=== PATIENT | male | born 1965 | race Caucasian/White ===

== ENCOUNTER 2019-10-16 18:03 | Inpatient (IN) | payer MEDICAID, OTHER ==
[~2019-10-16] VITALS: Ht 177.8 cm; Wt 64.4 kg
[2019-10-16] MEDS ORDERED: PROPOFOL 100 ML IV ONE (18:07)
--- NOTE | 2019-10-16 18:10 | NUR ---
PT HAD PRESENTED TO [facility] FOR ONE WEEK. DOES NOT SEE MD AND DENIED MEDICAL H TO [facility] [place]. PT ARRIVED ON VENTILATOR
[2019-10-16] MEDS ORDERED: DOPAMINE/D5W PMX 250 ML IV PRN ×2 (18:51→19:00)
[2019-10-16] MEDS ORDERED: MIDAZOLAM 1 MG/ML, 2ML IVPush ONE (19:00)
[2019-10-16] MEDS ORDERED: SODIUM CHLORIDE FLUSH 10ML SYR IVF ONE (19:00)
[2019-10-16] MEDS ORDERED: PLEASE ENTER HEIGHT AND WEIGHT MC SCH (19:00)
[2019-10-16] MEDS ORDERED: SODIUM CHLORIDE 0.9% 1,000ML IVBOLUS ONE (19:00)
[2019-10-16] MEDS: MIDAZOLAM HCL 50 MG in SODIUM CHLORIDE 0.9% 40 ML IV PRN (19:05)
--- NOTE | 2019-10-16 19:37 | NUR ---
REPORT TO DILCIA YUAN
[2019-10-16] MEDS ORDERED: MIDAZOLAM 1 MG/ML, 5ML ONE (19:41)
[2019-10-16] MEDS ORDERED: PIPERACILLIN/TAZO/PMX 3.375GM 50 ML IVPB ONE (20:00)
[2019-10-16] MEDS ORDERED: PHARMACOKINETIC CONSULTATION MC ONE ×2 (20:00→21:30)
[2019-10-16] MEDS ORDERED: VANCOMYCIN PER PHARMACY MC ONE (20:00)
[2019-10-16] MEDS ORDERED: VANCOMYCIN 1,800 MG in SODIUM CHLORIDE 0.9% 250 ML IV ONE (20:00)
[2019-10-16] MEDS ORDERED: PIPERACILLIN/TAZO/PMX 3.375GM 50 ML ONE (20:11)
[2019-10-16 20:22] LABS: ALBUMIN 1.9 g/dL (3.4-5.0); ANION GAP 3 mmol/L (5-15); CALCIUM 7.2 mg/dL (8.5-10.1); CHLORIDE 106 mmol/L (98-107); CREATININE 3.65 mg/dL (0.7-1.3)
[2019-10-16] MEDS ORDERED: NOREPINEPHRINE 8 MG in SODIUM CHLORIDE 0.9% 242 ML IV PRN (20:40)
[2019-10-16 21:00] LABS: BASOPHILS # (AUTO) 0.01 x10^3/uL (0-0.1); BASOPHILS % (AUTO) 0 % (0-1); EOSINOPHILS # (AUTO) 0.01 x10^3/uL (0-0.4); EOSINOPHILS % (AUTO) 0 % (1-7); LYMPHOCYTES # (AUTO) 1.71 x10^3/uL (1-3.4); LYMPHOCYTES % (AUTO) 13 % (22-44); MD NO; MEAN CORPUSCULAR HEMOGLOBIN 26.1 pg (27.5-34.5); MEAN CORPUSCULAR HGB CONC 32.3 g/dL (33.2-36.2); MEAN CORPUSCULAR VOLUME 80.7 fL (81-97); MEAN PLATELET VOLUME 7.7 fL (7.4-10.4); MONOCYTES # (AUTO) 0.32 x10^3/uL (0.2-0.8); MONOCYTES % (AUTO) 3 % (2-9); NEUTROPHILS # (AUTO) 10.96 x10^3/uL (1.8-6.8); NEUTROPHILS % (AUTO) 84 % (42-75); PLATELET COUNT 200 x10^3/uL (130-400); RED BLOOD COUNT 2.93 x10^6/uL (4.38-5.82); RED CELL DISTRIBUTION WIDTH 19.5 % (9.4-14.8)
[2019-10-16] MEDS: SODIUM CHLORIDE 0.9% 1,000 ML IV SCH (21:00)
[2019-10-16] MEDS ORDERED: INSULIN REGULAR 100 UNITS/ML, 3ML VIAL IVPush ONE ×2 (21:00→22:30)
[2019-10-16] MEDS ORDERED: LACTULOSE 20 GM/30 ML UDC NG PRN (21:00)
[2019-10-16] MEDS ORDERED: VANCOMYCIN PER PHARMACY MC PRN (21:00)
[2019-10-16] MEDS ORDERED: SODIUM BICARB 8.4%, 50ML SYRINGE IVPush ONE ×2 (21:00→22:30)
[2019-10-16] MEDS ORDERED: CALCIUM CHLORIDE 10%, 10ML SYR IVPush ONE (21:00)
[2019-10-16] MEDS ORDERED: ALBUTEROL 0.5%, 20ML NPPB ONE (21:00)
[2019-10-16] MEDS ORDERED: BISACODYL 10 MG SUPP PR PRN (21:00)
[2019-10-16] MEDS ORDERED: LIDOCAINE-MPF 1%, 2ML ENDO PRN (21:00)
[2019-10-16] MEDS ORDERED: PIPERACILLIN/TAZO/PMX 3.375GM 50 ML IV SCH (21:00)
[2019-10-16] MEDS ORDERED: DEXTROSE 50%, 50ML SYRINGE IVPush ONE ×2 (21:00→22:30)
[2019-10-16] MEDS ORDERED: ONDANSETRON 2MG/ML, 2ML IV PRN (21:00)
[2019-10-16] MEDS ORDERED: SENNA/DOCUSATE TABLET NG PRN (21:00)
[2019-10-16] MEDS ORDERED: ENOXAPARIN 30 MG/0.3 ML SQ SCH (21:00)
[2019-10-16] MEDS ORDERED: PHARMACY MAY ADJ FOR RENAL FX MC SCH (21:00)
[2019-10-16] MEDS ORDERED: SENNA 176 MG/5 ML ORAL SOL NG PRN (21:00)
[2019-10-16] MEDS ORDERED: PHARMACOKINETIC MONITORING MC PRN (21:30)
[2019-10-16] MEDS ORDERED: FUROSEMIDE 20 MG/2 ML IV ONE (21:30)
[2019-10-16] MEDS: NOREPINEPHRINE 8 MG in SODIUM CHLORIDE 0.9% 242 ML IV PRN (21:30)
--- NOTE | 2019-10-16 21:30 | NUR ---
PT REPORT GIVEN TO [facility] ICU 11 RN, PT TRANSPORTED TO ICU BED 11 WITHOUT INCEDENT.
[2019-10-16] MEDS ORDERED: CALCIUM CHLORIDE IV ONE (22:30)
[2019-10-16] MEDS ORDERED: SODIUM CHLORIDE 0.9% IV ONE (22:30)
[2019-10-16] MEDS ORDERED: SODIUM POLYSTYRENE SULFONATE ORAL SUSP PO ONE (22:30)
[2019-10-16 23:43] VITALS: BP 153/47
[2019-10-16 23:46] LABS: MICROSCOPIC INDICATED
[2019-10-17] VITALS: BP 139/46
[2019-10-17] MEDS: MIDAZOLAM HCL 50 MG in SODIUM CHLORIDE 0.9% 40 ML IV PRN ×3 (00:09→14:10)
[2019-10-17] MEDS: PIPERACILLIN/TAZO/PMX 3.375GM 50 ML IV SCH ×4 (01:57→19:40)
[2019-10-17 02:00] VITALS: BP 120/41
[2019-10-17] MEDS: NOREPINEPHRINE 8 MG in SODIUM CHLORIDE 0.9% 242 ML IV PRN ×4 (02:04→17:22)
[2019-10-17 05:30] LABS: ALANINE AMINOTRANSFERASE 70 U/L (12-78); ALBUMIN 1.9 g/dL (3.4-5.0); ANION GAP 6 mmol/L (5-15); CHLORIDE 105 mmol/L (98-107)
[2019-10-17 05:32] LABS: ALKALINE PHOSPHATASE 106 U/L (45-117); BILIRUBIN,TOTAL 1.3 mg/dL (0.2-1.0); CREATININE 3.89 mg/dL (0.7-1.3); TOTAL PROTEIN 8.9 g/dL (6.4-8.2)
[2019-10-17 06:07] LABS: BASOPHILS # (AUTO) 0.02 x10^3/uL (0-0.1); BASOPHILS % (AUTO) 0 % (0-1); EOSINOPHILS # (AUTO) 0.05 x10^3/uL (0-0.4); EOSINOPHILS % (AUTO) 0 % (1-7); LYMPHOCYTES # (AUTO) 2.07 x10^3/uL (1-3.4); LYMPHOCYTES % (AUTO) 13 % (22-44); MD NO; MEAN CORPUSCULAR HEMOGLOBIN 26.4 pg (27.5-34.5); MEAN CORPUSCULAR HGB CONC 32.5 g/dL (33.2-36.2); MEAN CORPUSCULAR VOLUME 81.2 fL (81-97); MEAN PLATELET VOLUME 8.3 fL (7.4-10.4); MONOCYTES # (AUTO) 0.33 x10^3/uL (0.2-0.8); MONOCYTES % (AUTO) 2 % (2-9); NEUTROPHILS % (AUTO) 84 % (42-75); PLATELET COUNT 260 x10^3/uL (130-400); RED BLOOD COUNT 3.54 x10^6/uL (4.38-5.82)
[2019-10-17] MEDS: PANTOPRAZOLE 40 MG IV IV SCH (08:07)
[2019-10-17] MEDS ORDERED: HEPARIN 5,000 UNITS/ML, 1ML IV ONE (09:30)
[2019-10-17] MEDS ORDERED: PHARMACY MAY ADJ FOR RENAL FX MC PRN (10:00)
[2019-10-17] MEDS ORDERED: PROCHLORPERAZINE 5 MG/ML, 2ML IVPush PRN (10:00)
[2019-10-17] MEDS: ASCORBIC ACID 500 MG TABLET PO SCH ×2 (10:42→19:34)
[2019-10-17] MEDS: CHOLECALCIFEROL 5,000u TAB PO SCH (10:42)
[2019-10-17] MEDS: HEPARIN 25,000 UNITS/250ML PMX 250 ML IV PRN (10:47)
[2019-10-17] MEDS: ASPIRIN 325 MG TABLET PO SCH (10:55)
[2019-10-17] MEDS: AZITHROMYCIN 500 MG in SODIUM CHLORIDE 0.9% 250 ML IV SCH (10:55)
[2019-10-17] MEDS: ZINC SULFATE 220 MG CAPSULE PO SCH (10:55)
[2019-10-17] MEDS: SODIUM CHLORIDE 0.9% 1,000 ML IV SCH (10:56)
[2019-10-17] MEDS: FENTANYL PF 100 MCG/2ML IVPush PRN (11:03)
[2019-10-17 15:50] LABS: ALBUMIN 1.8 g/dL (3.4-5.0); ANION GAP 7 mmol/L (5-15); CALCIUM 7.5 mg/dL (8.5-10.1); CHLORIDE 108 mmol/L (98-107); CREATININE 4.09 mg/dL (0.7-1.3)
[2019-10-17] MEDS ORDERED: MIDAZOLAM HCL 100 MG in SODIUM CHLORIDE 0.9% 80 ML IV PRN (17:00)
[2019-10-17] MEDS ORDERED: DEXTROSE 50%, 50ML SYRINGE IVPush ONE (18:30)
[2019-10-17] MEDS ORDERED: INSULIN REGULAR 100 UNITS/ML, 3ML VIAL IVPush ONE (18:30)
[2019-10-17] MEDS ORDERED: CALCIUM CHLORIDE 10%, 10ML SYR IVPush ONE (18:30)
[2019-10-17] MEDS ORDERED: SODIUM ZIRCONIUM CYCLOSILICATE 10 GM PO ONE (18:30)
[2019-10-17] MEDS: SODIUM BICARBONATE 8.4% 75 MEQ in SODIUM CHLORIDE 0.45% 1,000 ML IV SCH (19:31)
[2019-10-17] MEDS: MIDAZOLAM HCL 100 MG in SODIUM CHLORIDE 0.9% 80 ML IV PRN (19:32)
[2019-10-17] MEDS: NOREPINEPHRINE 32 MG in SODIUM CHLORIDE 0.9% 218 ML IV PRN (19:32)
[2019-10-17] MEDS: ATORVASTATIN 80 MG TABLET PO SCH (19:33)
[2019-10-17] MEDS: HEPARIN 5,000 UNITS/ML, 1ML IV PRN (19:35)
[2019-10-18] MEDS: PIPERACILLIN/TAZO/PMX 3.375GM 50 ML IV SCH ×2 (00:42→08:08)
[2019-10-18] MEDS: HEPARIN 5,000 UNITS/ML, 1ML IV PRN ×2 (03:06→14:28)
[2019-10-18] MEDS: MIDAZOLAM HCL 100 MG in SODIUM CHLORIDE 0.9% 80 ML IV PRN ×2 (04:36→21:34)
[2019-10-18] MEDS: HEPARIN 25,000 UNITS/250ML PMX 250 ML IV PRN ×2 (05:41→21:22)
[2019-10-18 06:22] LABS: ALBUMIN 1.7 g/dL (3.4-5.0); ANION GAP 9 mmol/L (5-15); CHLORIDE 109 mmol/L (98-107)
[2019-10-18 06:24] LABS: BASOPHILS # (AUTO) 0.06 x10^3/uL (0-0.1); BASOPHILS % (AUTO) 0 % (0-1); EOSINOPHILS # (AUTO) 0.04 x10^3/uL (0-0.4); EOSINOPHILS % (AUTO) 0 % (1-7); LYMPHOCYTES # (AUTO) 3.31 x10^3/uL (1-3.4); LYMPHOCYTES % (AUTO) 21 % (22-44); MD NO; MEAN CORPUSCULAR HEMOGLOBIN 26.4 pg (27.5-34.5); MEAN CORPUSCULAR HGB CONC 32.1 g/dL (33.2-36.2); MEAN CORPUSCULAR VOLUME 82.2 fL (81-97); MEAN PLATELET VOLUME 7.7 fL (7.4-10.4); MONOCYTES # (AUTO) 0.63 x10^3/uL (0.2-0.8); MONOCYTES % (AUTO) 4 % (2-9); NEUTROPHILS % (AUTO) 75 % (42-75); PLATELET COUNT 266 x10^3/uL (130-400); RED BLOOD COUNT 4.02 x10^6/uL (4.38-5.82)
[2019-10-18 06:25] LABS: ALANINE AMINOTRANSFERASE 69 U/L (12-78); ALKALINE PHOSPHATASE 86 U/L (45-117); BILIRUBIN,TOTAL 1.2 mg/dL (0.2-1.0); CREATININE 4.66 mg/dL (0.7-1.3); TOTAL PROTEIN 8.5 g/dL (6.4-8.2)
[2019-10-18 06:30] LABS: C-REACTIVE PROTEIN, QUANT 8.1 mg/dL (0.02-0.49); VANCOMYCIN,RANDOM 16.2 mcg/mL
[2019-10-18] MEDS: SODIUM BICARBONATE 8.4% 75 MEQ in SODIUM CHLORIDE 0.45% 1,000 ML IV SCH (08:08)
[2019-10-18] MEDS ORDERED: PIPERACILLIN/TAZO/PMX 2.25GM 50 ML IV SCH ×2 (10:00→14:00)
[2019-10-18] MEDS: PANTOPRAZOLE 40 MG IV IV SCH (10:06)
[2019-10-18] MEDS: ASCORBIC ACID 500 MG TABLET PO SCH ×2 (10:06→21:30)
[2019-10-18] MEDS: CHOLECALCIFEROL 5,000u TAB PO SCH (10:06)
[2019-10-18] MEDS: ASPIRIN 325 MG TABLET PO SCH (10:06)
[2019-10-18] MEDS: ZINC SULFATE 220 MG CAPSULE PO SCH (10:06)
[2019-10-18] MEDS: AZITHROMYCIN 500 MG in SODIUM CHLORIDE 0.9% 250 ML IV SCH (10:07)
[2019-10-18] MEDS: NOREPINEPHRINE 32 MG in SODIUM CHLORIDE 0.9% 218 ML IV PRN ×2 (10:11→23:18)
[2019-10-18] MEDS ORDERED: SODIUM ZIRCONIUM CYCLOSILICATE 5 GM PO ONE (11:00)
[2019-10-18] MEDS ORDERED: METHYLNALTREXONE 12 MG/0.6 ML SYR SQ ONE (12:28)
[2019-10-18] MEDS: PIPERACILLIN/TAZO/PMX 2.25GM 50 ML IV SCH ×2 (13:05→21:30)
[2019-10-18] MEDS ORDERED: SODIUM BICARBONATE 8.4% 75 MEQ in SODIUM CHLORIDE 0.45% 1,000 ML IV SCH (18:30)
[2019-10-18] MEDS: ATORVASTATIN 80 MG TABLET PO SCH (21:30)
[2019-10-19] MEDS: HEPARIN 5,000 UNITS/ML, 1ML IV PRN ×3 (01:00→16:44)
[2019-10-19] MEDS: PIPERACILLIN/TAZO/PMX 2.25GM 50 ML IV SCH ×4 (02:29→19:23)
[2019-10-19 04:38] LABS: BASOPHILS # (AUTO) 0.05 x10^3/uL (0-0.1); BASOPHILS % (AUTO) 0 % (0-1); EOSINOPHILS # (AUTO) 0.14 x10^3/uL (0-0.4); EOSINOPHILS % (AUTO) 1 % (1-7); HCT (SEDRATE) 27.3 % (39.2-51.8); LYMPHOCYTES # (AUTO) 3.14 x10^3/uL (1-3.4); LYMPHOCYTES % (AUTO) 26 % (22-44); MD NO; MEAN CORPUSCULAR HEMOGLOBIN 26.5 pg (27.5-34.5); MEAN CORPUSCULAR HGB CONC 32.2 g/dL (33.2-36.2); MEAN CORPUSCULAR VOLUME 82.1 fL (81-97); MEAN PLATELET VOLUME 7.1 fL (7.4-10.4); MONOCYTES # (AUTO) 0.69 x10^3/uL (0.2-0.8); MONOCYTES % (AUTO) 6 % (2-9); NEUTROPHILS # (AUTO) 8.19 x10^3/uL (1.8-6.8); NEUTROPHILS % (AUTO) 67 % (42-75); PLATELET COUNT 282 x10^3/uL (130-400); RED BLOOD COUNT 3.33 x10^6/uL (4.38-5.82); RED CELL DISTRIBUTION WIDTH 19.9 % (9.4-14.8)
[2019-10-19 04:42] LABS: ALBUMIN 1.5 g/dL (3.4-5.0); ANION GAP 8 mmol/L (5-15); CALCIUM 7.6 mg/dL (8.5-10.1); CHLORIDE 109 mmol/L (98-107)
[2019-10-19 04:45] LABS: ALANINE AMINOTRANSFERASE 45 U/L (12-78); CREATININE 4.98 mg/dL (0.7-1.3); TOTAL PROTEIN 7.7 g/dL (6.4-8.2); TRIGLYCERIDES 142 mg/dL (50-200)
[2019-10-19 04:50] LABS: ALKALINE PHOSPHATASE 65 U/L (45-117)
[2019-10-19] MEDS: ASPIRIN 325 MG TABLET PO SCH (05:32)
[2019-10-19] MEDS: CHOLECALCIFEROL 5,000u TAB PO SCH (07:54)
[2019-10-19] MEDS: ASCORBIC ACID 500 MG TABLET PO SCH ×2 (07:54→21:54)
[2019-10-19] MEDS: ZINC SULFATE 220 MG CAPSULE PO SCH (07:54)
[2019-10-19] MEDS: PANTOPRAZOLE 40 MG IV IV SCH (07:54)
[2019-10-19] MEDS: AZITHROMYCIN 500 MG in SODIUM CHLORIDE 0.9% 250 ML IV SCH (10:11)
[2019-10-19] MEDS ORDERED: FUROSEMIDE 40 MG/4 ML IV ONE ×2 (11:00→17:00)
[2019-10-19] MEDS: HEPARIN 25,000 UNITS/250ML PMX 250 ML IV PRN (15:23)
[2019-10-19] MEDS: MIDAZOLAM HCL 100 MG in SODIUM CHLORIDE 0.9% 80 ML IV PRN (15:25)
[2019-10-19] MEDS: NOREPINEPHRINE 32 MG in SODIUM CHLORIDE 0.9% 218 ML IV PRN (21:54)
[2019-10-19] MEDS: ATORVASTATIN 80 MG TABLET PO SCH (21:54)
[2019-10-20] MEDS: PIPERACILLIN/TAZO/PMX 2.25GM 50 ML IV SCH ×4 (02:31→20:33)
[2019-10-20] MEDS: HEPARIN 25,000 UNITS/250ML PMX 250 ML IV PRN (04:53)
[2019-10-20] MEDS: ASPIRIN 325 MG TABLET PO SCH (05:04)
[2019-10-20 05:27] LABS: BASOPHILS # (AUTO) 0.03 x10^3/uL (0-0.1); BASOPHILS % (AUTO) 0 % (0-1); EOSINOPHILS # (AUTO) 0.09 x10^3/uL (0-0.4); EOSINOPHILS % (AUTO) 1 % (1-7); LYMPHOCYTES # (AUTO) 2.65 x10^3/uL (1-3.4); LYMPHOCYTES % (AUTO) 25 % (22-44); MD NO; MEAN CORPUSCULAR HEMOGLOBIN 26.9 pg (27.5-34.5); MEAN CORPUSCULAR HGB CONC 32.5 g/dL (33.2-36.2); MEAN CORPUSCULAR VOLUME 82.7 fL (81-97); MEAN PLATELET VOLUME 6.8 fL (7.4-10.4); MONOCYTES # (AUTO) 0.53 x10^3/uL (0.2-0.8); MONOCYTES % (AUTO) 5 % (2-9); NEUTROPHILS # (AUTO) 7.33 x10^3/uL (1.8-6.8); NEUTROPHILS % (AUTO) 69 % (42-75); PLATELET COUNT 240 x10^3/uL (130-400); RED BLOOD COUNT 3.06 x10^6/uL (4.38-5.82); RED CELL DISTRIBUTION WIDTH 21.4 % (9.4-14.8)
[2019-10-20 05:32] LABS: HCT (SEDRATE) 25.3 % (39.2-51.8)
[2019-10-20 05:40] LABS: ANION GAP 7 mmol/L (5-15); CALCIUM 7.6 mg/dL (8.5-10.1); CHLORIDE 109 mmol/L (98-107); CREATININE 5.49 mg/dL (0.7-1.3)
[2019-10-20] MEDS: HEPARIN 5,000 UNITS/ML, 1ML IV PRN (06:23)
[2019-10-20] MEDS: PANTOPRAZOLE 40 MG IV IV SCH (07:57)
[2019-10-20] MEDS: ASCORBIC ACID 500 MG TABLET PO SCH ×2 (07:57→20:34)
[2019-10-20] MEDS: CHOLECALCIFEROL 5,000u TAB PO SCH (07:57)
[2019-10-20] MEDS: ZINC SULFATE 220 MG CAPSULE PO SCH (07:57)
[2019-10-20] MEDS: HEPARIN 5,000 UNITS/ML, 1ML SQ SCH ×2 (11:14→20:34)
[2019-10-20] MEDS: AZITHROMYCIN 500 MG in SODIUM CHLORIDE 0.9% 250 ML IV SCH (11:14)
[2019-10-20] MEDS: ATORVASTATIN 80 MG TABLET PO SCH (20:34)
[2019-10-21] MEDS: PIPERACILLIN/TAZO/PMX 2.25GM 50 ML IV SCH ×4 (01:27→21:04)
[2019-10-21] MEDS: HEPARIN 5,000 UNITS/ML, 1ML SQ SCH ×3 (03:35→21:04)
[2019-10-21 04:01] LABS: BASOPHILS # (AUTO) 0.04 x10^3/uL (0-0.1); BASOPHILS % (AUTO) 1 % (0-1); EOSINOPHILS # (AUTO) 0.11 x10^3/uL (0-0.4); EOSINOPHILS % (AUTO) 1 % (1-7); LYMPHOCYTES # (AUTO) 2.07 x10^3/uL (1-3.4); LYMPHOCYTES % (AUTO) 25 % (22-44); MD NO; MEAN CORPUSCULAR HEMOGLOBIN 26.8 pg (27.5-34.5); MEAN CORPUSCULAR HGB CONC 32.2 g/dL (33.2-36.2); MEAN CORPUSCULAR VOLUME 83.3 fL (81-97); MEAN PLATELET VOLUME 6.9 fL (7.4-10.4); MONOCYTES # (AUTO) 0.36 x10^3/uL (0.2-0.8); MONOCYTES % (AUTO) 4 % (2-9); NEUTROPHILS # (AUTO) 5.57 x10^3/uL (1.8-6.8); NEUTROPHILS % (AUTO) 68 % (42-75); PLATELET COUNT 181 x10^3/uL (130-400); RED BLOOD COUNT 2.91 x10^6/uL (4.38-5.82); RED CELL DISTRIBUTION WIDTH 21.2 % (9.4-14.8)
[2019-10-21 04:06] LABS: ANION GAP 7 mmol/L (5-15); CALCIUM 7.6 mg/dL (8.5-10.1); CHLORIDE 109 mmol/L (98-107); CREATININE 5.65 mg/dL (0.7-1.3)
[2019-10-21 04:07] LABS: HCT (SEDRATE) 24.3 % (39.2-51.8)
[2019-10-21] MEDS: PROPOFOL 100 ML IV PRN (06:08)
[2019-10-21 06:33] LABS: FIO2 40 %
[2019-10-21] MEDS: CHOLECALCIFEROL 5,000u TAB PO SCH (08:20)
[2019-10-21] MEDS: PANTOPRAZOLE 40 MG IV IV SCH (08:20)
[2019-10-21] MEDS: ZINC SULFATE 220 MG CAPSULE PO SCH (08:20)
[2019-10-21] MEDS: AZITHROMYCIN 500 MG in SODIUM CHLORIDE 0.9% 250 ML IV SCH (11:00)
[2019-10-21] MEDS: ASCORBIC ACID 500 MG TABLET PO SCH ×2 (11:00→21:04)
[2019-10-21] MEDS: ASPIRIN 325 MG TABLET PO SCH (11:01)
[2019-10-21] MEDS ORDERED: FUROSEMIDE 40 MG/4 ML IV ONE (11:30)
[2019-10-21] MEDS ORDERED: FUROSEMIDE 20 MG/2 ML ONE (12:19)
[2019-10-21] MEDS: ATORVASTATIN 80 MG TABLET PO SCH (21:05)
[2019-10-21] MEDS: NOREPINEPHRINE 32 MG in SODIUM CHLORIDE 0.9% 218 ML IV PRN (22:55)
[2019-10-22] MEDS: PIPERACILLIN/TAZO/PMX 2.25GM 50 ML IV SCH ×4 (01:40→20:20)
[2019-10-22] MEDS: PROPOFOL 100 ML IV PRN ×3 (01:41→23:45)
[2019-10-22 04:06] LABS: MEAN CORPUSCULAR HEMOGLOBIN 26.6 pg (27.5-34.5); MEAN CORPUSCULAR HGB CONC 31.2 g/dL (33.2-36.2); MEAN PLATELET VOLUME 7.1 fL (7.4-10.4); PLATELET COUNT 127 x10^3/uL (130-400); RED BLOOD COUNT 2.71 x10^6/uL (4.38-5.82)
[2019-10-22 04:17] LABS: ANION GAP 7 mmol/L (5-15); CALCIUM 7.6 mg/dL (8.5-10.1); CHLORIDE 111 mmol/L (98-107)
[2019-10-22 04:18] LABS: MD YES
[2019-10-22 04:19] LABS: CREATININE 5.46 mg/dL (0.7-1.3); TRIGLYCERIDES 140 mg/dL (50-200)
[2019-10-22 04:20] LABS: <PLATELET ESTIMATE> DECREASED; <PLT MORPHOLOGY> NORMAL PLT MORPH; ANISOCYTOSIS 1+; LYMPH#(MANUAL) 1.15 x10^3/uL (1-3.4); LYMPHS% (MANUAL) 16 % (22-44); MICROCYTOSIS 1+; MONOS#(MANUAL) 0.07 x10^3/uL (0.3-2.7); MONOS% (MANUAL) 1 % (2-9); OVALOCYTES 1+; POLYCHROMASIA 1+; SEG#(MANUAL) 5.98 x10^3/uL (1.8-6.8); SEGS% (MANUAL) 83 % (42-75)
[2019-10-22 04:21] LABS: TOXIC GRAN 1+
[2019-10-22 04:30] LABS: ALBUMIN 1.6 g/dL (3.4-5.0); BILIRUBIN, DIRECT 0.4 mg/dL (0.1-0.2)
[2019-10-22 04:33] LABS: BILIRUBIN,INDIRECT 0.2 mg/dL (0.0-2.0); BILIRUBIN,TOTAL 0.6 mg/dL (0.2-1.0); TOTAL PROTEIN 8.2 g/dL (6.4-8.2)
[2019-10-22] MEDS: HEPARIN 5,000 UNITS/ML, 1ML SQ SCH (05:25)
[2019-10-22] MEDS: ASPIRIN 325 MG TABLET PO SCH (05:26)
[2019-10-22] MEDS: PANTOPRAZOLE 40 MG IV IV SCH (08:34)
[2019-10-22] MEDS: CHOLECALCIFEROL 5,000u TAB PO SCH (08:34)
[2019-10-22] MEDS: ZINC SULFATE 220 MG CAPSULE PO SCH (08:34)
[2019-10-22] MEDS: ASCORBIC ACID 500 MG TABLET PO SCH ×2 (08:34→20:19)
[2019-10-22 09:59] LABS: HIT RESULT POSITIVE (NEGATIVE)
[2019-10-22] MEDS ORDERED: DOPAMINE/D5W PMX 250 ML ONE (10:23)
[2019-10-22] MEDS: DOPAMINE/D5W PMX 250 ML IV PRN ×3 (11:29→23:45)
[2019-10-22] MEDS ORDERED: ARGATROBAN/NACL 50 MG/50 ML 50 ML IV SCH ×3 (11:30→15:00)
[2019-10-22] MEDS: ARGATROBAN/NACL 50 MG/50 ML 50 ML IV SCH (18:16)
[2019-10-22] MEDS: ACETAMINOPHEN 325 MG TABLET PO PRN (20:19)
[2019-10-22] MEDS: ATORVASTATIN 80 MG TABLET PO SCH (20:19)
[2019-10-22] MEDS: FENTANYL PF 100 MCG/2ML IVPush PRN (22:26)
[2019-10-23] MEDS: FENTANYL PF 100 MCG/2ML IVPush PRN (01:06)
[2019-10-23] MEDS: PIPERACILLIN/TAZO/PMX 2.25GM 50 ML IV SCH ×4 (02:13→19:42)
[2019-10-23] MEDS: DOPAMINE/D5W PMX 250 ML IV PRN ×3 (03:53→21:11)
[2019-10-23 05:11] LABS: ANION GAP 4 mmol/L (5-15); CALCIUM 7.7 mg/dL (8.5-10.1); CHLORIDE 112 mmol/L (98-107); CREATININE 4.88 mg/dL (0.7-1.3)
[2019-10-23 05:17] LABS: MEAN CORPUSCULAR HEMOGLOBIN 27.4 pg (27.5-34.5); MEAN CORPUSCULAR HGB CONC 32.3 g/dL (33.2-36.2); MEAN CORPUSCULAR VOLUME 84.9 fL (81-97); MEAN PLATELET VOLUME 7.6 fL (7.4-10.4); PLATELET COUNT 99 x10^3/uL (130-400); RED BLOOD COUNT 2.76 x10^6/uL (4.38-5.82)
[2019-10-23] MEDS: ARGATROBAN/NACL 50 MG/50 ML 50 ML IV SCH (05:19)
[2019-10-23] MEDS: ASPIRIN 325 MG TABLET PO SCH (05:20)
[2019-10-23 05:51] LABS: BASOPHILS # (AUTO) 0.03 x10^3/uL (0-0.1); BASOPHILS % (AUTO) 0 % (0-1); EOSINOPHILS # (AUTO) 0.13 x10^3/uL (0-0.4); EOSINOPHILS % (AUTO) 2 % (1-7); LYMPHOCYTES # (AUTO) 1.59 x10^3/uL (1-3.4); LYMPHOCYTES % (AUTO) 20 % (22-44); MD SCAN; MONOCYTES # (AUTO) 0.31 x10^3/uL (0.2-0.8); MONOCYTES % (AUTO) 4 % (2-9); NEUTROPHILS # (AUTO) 6.07 x10^3/uL (1.8-6.8); NEUTROPHILS % (AUTO) 75 % (42-75)
[2019-10-23] MEDS ORDERED: PROPOFOL 10 MG/ML, 100ML IV ONE (08:00)
[2019-10-23] MEDS ORDERED: ETOMIDATE 20 MG/10 ML ONE (08:00)
[2019-10-23] MEDS ORDERED: SUCCINYLCHOLINE 20 MG/ML, 10ML ONE (08:00)
[2019-10-23] MEDS: CHOLECALCIFEROL 5,000u TAB PO SCH (08:41)
[2019-10-23] MEDS: PANTOPRAZOLE 40 MG IV IV SCH (08:41)
[2019-10-23] MEDS ORDERED: FONDAPARINUX 2.5 MG/0.5 ML SQ SCH (09:00)
[2019-10-23] MEDS ORDERED: DOPAMINE/D5W PMX 250 ML ONE (09:23)
[2019-10-23] MEDS ORDERED: DEXAMETHASONE 4 MG/ML, 1ML IVPush ONE (09:30)
[2019-10-23] MEDS ORDERED: ARGATROBAN 250 MG in SODIUM CHLORIDE 0.9% 250 ML IV SCH (10:30)
[2019-10-23 12:45] LABS: FIO2 35 %
[2019-10-23] MEDS: ATORVASTATIN 80 MG TABLET PO SCH (21:09)
[2019-10-23] MEDS ORDERED: MIDAZOLAM 1 MG/ML, 5ML ONE (23:41)
[2019-10-23] MEDS ORDERED: FENTANYL PF 100 MCG/2ML ONE (23:41)
[2019-10-24] VITALS (8 sets, daily range): BP systolic 108–126; BP diastolic 35–50
[2019-10-24] MEDS ORDERED: FENTANYL PF 100 MCG/2ML IVPush ONE (00:30)
[2019-10-24] MEDS ORDERED: MIDAZOLAM 1 MG/ML, 5ML IVPush ONE (00:30)
[2019-10-24] MEDS ORDERED: VANCOMYCIN PER PHARMACY MC PRN (00:30)
[2019-10-24] MEDS: NOREPINEPHRINE 8 MG in SODIUM CHLORIDE 0.9% 242 ML IV PRN ×3 (00:31→21:38)
[2019-10-24] MEDS ORDERED: NOREPINEPHRINE 8 MG in SODIUM CHLORIDE 0.9% 242 ML IV PRN (00:33)
[2019-10-24] MEDS ORDERED: GLUCAGON 1 MG IM PRN (01:00)
[2019-10-24] MEDS ORDERED: LIDOCAINE-MPF 1%, 2ML ENDO PRN (01:00)
[2019-10-24] MEDS ORDERED: LACTULOSE 20 GM/30 ML UDC NG PRN (01:00)
[2019-10-24] MEDS ORDERED: PHARMACY MAY ADJ FOR RENAL FX MC SCH (01:00)
[2019-10-24] MEDS ORDERED: PHARMACOKINETIC MONITORING MC PRN (01:00)
[2019-10-24] MEDS ORDERED: SENNA/DOCUSATE TABLET NG PRN (01:00)
[2019-10-24] MEDS ORDERED: VANCOMYCIN 1,400 MG in SODIUM CHLORIDE 0.9% 250 ML IV ONE (01:00)
[2019-10-24] MEDS ORDERED: DEXTROSE 4 GM TAB.CHEW PO PRN (01:00)
[2019-10-24] MEDS ORDERED: DEXTROSE 50%, 50ML SYRINGE IVPush PRN (01:00)
[2019-10-24] MEDS ORDERED: SENNA 176 MG/5 ML ORAL SOL NG PRN (01:00)
[2019-10-24] MEDS ORDERED: BISACODYL 10 MG SUPP PR PRN (01:00)
[2019-10-24 01:12] LABS: TRIGLYCERIDES 125 mg/dL (50-200)
[2019-10-24] MEDS: PIPERACILLIN/TAZO/PMX 2.25GM 50 ML IV SCH ×4 (02:27→20:03)
[2019-10-24] MEDS: DOPAMINE/D5W PMX 250 ML IV PRN (02:39)
[2019-10-24] MEDS: ALBUTEROL/IPRATROPIUM 2.5MG/0.5MG, 3 ML INLINE SCH ×6 (03:55→22:29)
[2019-10-24 05:58] LABS: MEAN CORPUSCULAR HEMOGLOBIN 28.8 pg (27.5-34.5); MEAN CORPUSCULAR HGB CONC 33.1 g/dL (33.2-36.2); MEAN CORPUSCULAR VOLUME 87.1 fL (81-97); MEAN PLATELET VOLUME 8.2 fL (7.4-10.4); PLATELET COUNT 161 x10^3/uL (130-400); RED BLOOD COUNT 3.18 x10^6/uL (4.38-5.82)
[2019-10-24 06:05] LABS: CALCIUM 8.1 mg/dL (8.5-10.1); CHLORIDE 111 mmol/L (98-107); CREATININE 4.54 mg/dL (0.7-1.3)
[2019-10-24] MEDS: PROPOFOL 100 ML IV PRN (06:16)
[2019-10-24 06:18] LABS: MD YES
[2019-10-24 06:19] LABS: BAND#(MANUAL) 0.21 x10^3/uL; BANDS%(MANUAL) 1 % (0-7); LYMPH#(MANUAL) 1.93 x10^3/uL (1-3.4); LYMPHS% (MANUAL) 9 % (22-44); MONOS#(MANUAL) 0.21 x10^3/uL (0.3-2.7); MONOS% (MANUAL) 1 % (2-9); MYELOCYTES# (MANUAL) 0.21 x10^3/uL (0-0); MYELOCYTES% (MANUAL) 1 % (0-0); SEG#(MANUAL) 18.83 x10^3/uL (1.8-6.8); SEGS% (MANUAL) 88 % (42-75)
[2019-10-24 06:21] LABS: <PLATELET ESTIMATE> ADEQUATE; <PLT MORPHOLOGY> NORMAL PLT MORPH; ANISOCYTOSIS 1+; MICROCYTOSIS 1+; OVALOCYTES 1+; POLYCHROMASIA 1+; TOXIC GRAN 1+
[2019-10-24 06:27] LABS: ANION GAP 6 mmol/L (5-15)
[2019-10-24] MEDS ORDERED: LIDOCAINE 1%, 50ML ONE (08:00)
[2019-10-24] MEDS ORDERED: EPINEPHRINE SYRINGE 0.1 MG/ML, 10ML ONE (08:00)
[2019-10-24] MEDS: ASPIRIN 325 MG TABLET PO SCH (08:56)
[2019-10-24] MEDS: PANTOPRAZOLE 40 MG IV IV SCH (08:56)
[2019-10-24] MEDS: CHOLECALCIFEROL 5,000u TAB PO SCH (08:56)
[2019-10-24] MEDS: SODIUM CHLORIDE FLUSH 10ML SYR IVF SCH ×2 (08:57→20:03)
[2019-10-24 14:59] LABS: BASOPHILS # (AUTO) 0.12 x10^3/uL (0-0.1); BASOPHILS % (AUTO) 1 % (0-1); EOSINOPHILS # (AUTO) 0.33 x10^3/uL (0-0.4); EOSINOPHILS % (AUTO) 2 % (1-7); LYMPHOCYTES # (AUTO) 2.96 x10^3/uL (1-3.4); LYMPHOCYTES % (AUTO) 19 % (22-44); MD NO; MEAN CORPUSCULAR HEMOGLOBIN 28.7 pg (27.5-34.5); MEAN CORPUSCULAR VOLUME 86.8 fL (81-97); MEAN PLATELET VOLUME 8.2 fL (7.4-10.4); MONOCYTES % (AUTO) 4 % (2-9); NEUTROPHILS # (AUTO) 11.88 x10^3/uL (1.8-6.8); NEUTROPHILS % (AUTO) 74 % (42-75); PLATELET COUNT 156 x10^3/uL (130-400); RED BLOOD COUNT 2.85 x10^6/uL (4.38-5.82); RED CELL DISTRIBUTION WIDTH 21.8 % (9.4-14.8)
[2019-10-24 15:00] LABS: ANION GAP 7 mmol/L (5-15); CALCIUM 7.7 mg/dL (8.5-10.1); CHLORIDE 112 mmol/L (98-107); CREATININE 4.64 mg/dL (0.7-1.3)
[2019-10-24 17:01] LABS: HCT (SEDRATE) 24.9 % (39.2-51.8)
[2019-10-24] MEDS ORDERED: DESMOPRESSIN 4 MCG/ML IVPush ONE (17:30)
[2019-10-24 18:25] LABS: D-DIMER (DIC) 1.57 ug/mlFEU (0.00-0.52); PROTIME 12.7 Seconds (9.6-11.5)
[2019-10-24] MEDS: ATORVASTATIN 80 MG TABLET PO SCH (21:37)
[2019-10-25] MEDS: PROPOFOL 100 ML IV PRN ×3 (01:11→23:20)
[2019-10-25] MEDS: PIPERACILLIN/TAZO/PMX 2.25GM 50 ML IV SCH ×4 (01:51→21:13)
[2019-10-25] MEDS: ALBUTEROL/IPRATROPIUM 2.5MG/0.5MG, 3 ML INLINE SCH ×6 (02:00→23:00)
[2019-10-25 05:28] LABS: ANION GAP 8 mmol/L (5-15); CALCIUM 7.6 mg/dL (8.5-10.1); CHLORIDE 112 mmol/L (98-107); CREATININE 4.31 mg/dL (0.7-1.3)
[2019-10-25 06:06] LABS: MEAN CORPUSCULAR HEMOGLOBIN 28.6 pg (27.5-34.5); MEAN CORPUSCULAR VOLUME 86.6 fL (81-97); MEAN PLATELET VOLUME 8.4 fL (7.4-10.4); PLATELET COUNT 151 x10^3/uL (130-400); RED BLOOD COUNT 2.65 x10^6/uL (4.38-5.82); RED CELL DISTRIBUTION WIDTH 22.2 % (9.4-14.8)
[2019-10-25 06:08] LABS: BASOPHILS % (AUTO) 1 % (0-1); EOSINOPHILS # (AUTO) 0.35 x10^3/uL (0-0.4); EOSINOPHILS % (AUTO) 3 % (1-7); LYMPHOCYTES # (AUTO) 3.06 x10^3/uL (1-3.4); LYMPHOCYTES % (AUTO) 23 % (22-44); MD SCAN; MONOCYTES # (AUTO) 0.52 x10^3/uL (0.2-0.8); MONOCYTES % (AUTO) 4 % (2-9); NEUTROPHILS # (AUTO) 9.25 x10^3/uL (1.8-6.8); NEUTROPHILS % (AUTO) 70 % (42-75)
[2019-10-25] MEDS: NOREPINEPHRINE 8 MG in SODIUM CHLORIDE 0.9% 242 ML IV PRN ×2 (08:21→19:30)
[2019-10-25] MEDS ORDERED: ASPIRIN 81 MG TABLET EC PO SCH (08:30)
[2019-10-25] MEDS: PANTOPRAZOLE 40 MG IV IV SCH (08:48)
[2019-10-25] MEDS: CHOLECALCIFEROL 5,000u TAB PO SCH (08:48)
[2019-10-25] MEDS: SODIUM CHLORIDE FLUSH 10ML SYR IVF SCH ×2 (08:48→21:13)
[2019-10-25 10:48] LABS: MEAN CORPUSCULAR HEMOGLOBIN 28.6 pg (27.5-34.5); MEAN CORPUSCULAR HGB CONC 33.1 g/dL (33.2-36.2); MEAN CORPUSCULAR VOLUME 86.6 fL (81-97); MEAN PLATELET VOLUME 8.4 fL (7.4-10.4); PLATELET COUNT 155 x10^3/uL (130-400); RED BLOOD COUNT 2.56 x10^6/uL (4.38-5.82); RED CELL DISTRIBUTION WIDTH 22.9 % (9.4-14.8)
[2019-10-25] MEDS: ATORVASTATIN 80 MG TABLET PO SCH (21:13)
[2019-10-26] MEDS: PIPERACILLIN/TAZO/PMX 2.25GM 50 ML IV SCH ×2 (01:23→08:52)
[2019-10-26] MEDS: ALBUTEROL/IPRATROPIUM 2.5MG/0.5MG, 3 ML INLINE SCH ×6 (02:38→21:55)
[2019-10-26 04:43] LABS: ANION GAP 8 mmol/L (5-15); CALCIUM 7.5 mg/dL (8.5-10.1); CHLORIDE 115 mmol/L (98-107)
[2019-10-26 04:52] LABS: MEAN CORPUSCULAR HEMOGLOBIN 28.8 pg (27.5-34.5); MEAN CORPUSCULAR VOLUME 87.4 fL (81-97); MEAN PLATELET VOLUME 8.7 fL (7.4-10.4); PLATELET COUNT 146 x10^3/uL (130-400); RED BLOOD COUNT 2.36 x10^6/uL (4.38-5.82); RED CELL DISTRIBUTION WIDTH 22.8 % (9.4-14.8)
[2019-10-26 05:15] LABS: ALBUMIN 1.7 g/dL (3.4-5.0); BILIRUBIN, DIRECT 0.4 mg/dL (0.1-0.2)
[2019-10-26 05:17] LABS: BILIRUBIN,INDIRECT 0.5 mg/dL (0.0-2.0); BILIRUBIN,TOTAL 0.9 mg/dL (0.2-1.0)
[2019-10-26 05:22] LABS: BASOPHILS # (AUTO) 0.04 x10^3/uL (0-0.1); BASOPHILS % (AUTO) 0 % (0-1); EOSINOPHILS # (AUTO) 0.24 x10^3/uL (0-0.4); EOSINOPHILS % (AUTO) 2 % (1-7); LYMPHOCYTES # (AUTO) 1.92 x10^3/uL (1-3.4); LYMPHOCYTES % (AUTO) 16 % (22-44); MD SCAN; MONOCYTES # (AUTO) 0.51 x10^3/uL (0.2-0.8); MONOCYTES % (AUTO) 4 % (2-9); NEUTROPHILS # (AUTO) 9.35 x10^3/uL (1.8-6.8); NEUTROPHILS % (AUTO) 78 % (42-75)
[2019-10-26] MEDS: ASPIRIN 81 MG TABLET CHEW PO SCH (06:01)
[2019-10-26] MEDS: CHOLECALCIFEROL 5,000u TAB PO SCH (08:51)
[2019-10-26] MEDS: PANTOPRAZOLE 40 MG IV IV SCH (08:51)
[2019-10-26] MEDS: PROPOFOL 100 ML IV PRN ×2 (08:52→21:51)
[2019-10-26] MEDS: SODIUM CHLORIDE FLUSH 10ML SYR IVF SCH ×2 (08:52→21:44)
[2019-10-26] MEDS ORDERED: FUROSEMIDE 40 MG/4 ML IV ONE (10:30)
[2019-10-26] MEDS ORDERED: FUROSEMIDE 20 MG/2 ML ONE (12:38)
[2019-10-26] MEDS: DOXYCYCLINE 100 MG in DEXTROSE 5% 250 ML IV SCH (12:41)
[2019-10-26] MEDS: CEFTRIAXONE PMX 2GM/50ML 50 ML IV SCH (12:48)
[2019-10-26] MEDS: ATORVASTATIN 80 MG TABLET PO SCH (21:44)
[2019-10-27] MEDS: DOXYCYCLINE 100 MG in DEXTROSE 5% 250 ML IV SCH ×2 (00:09→13:08)
[2019-10-27] MEDS: ALBUTEROL/IPRATROPIUM 2.5MG/0.5MG, 3 ML INLINE SCH ×6 (02:00→22:01)
[2019-10-27] MEDS: PROPOFOL 100 ML IV PRN ×2 (02:48→13:16)
[2019-10-27] MEDS: ASPIRIN 81 MG TABLET CHEW PO SCH (05:22)
[2019-10-27 06:03] LABS: ANION GAP 7 mmol/L (5-15); CALCIUM 7.5 mg/dL (8.5-10.1); CHLORIDE 116 mmol/L (98-107); CREATININE 3.97 mg/dL (0.7-1.3); TRIGLYCERIDES 111 mg/dL (50-200)
[2019-10-27 06:17] LABS: MEAN CORPUSCULAR HEMOGLOBIN 29.3 pg (27.5-34.5); MEAN CORPUSCULAR VOLUME 88.9 fL (81-97); MEAN PLATELET VOLUME 9.4 fL (7.4-10.4); PLATELET COUNT 167 x10^3/uL (130-400); RED BLOOD COUNT 2.18 x10^6/uL (4.38-5.82); RED CELL DISTRIBUTION WIDTH 23.3 % (9.4-14.8)
[2019-10-27 06:41] LABS: BASOPHILS # (AUTO) 0.01 x10^3/uL (0-0.1); BASOPHILS % (AUTO) 0 % (0-1); EOSINOPHILS # (AUTO) 0.24 x10^3/uL (0-0.4); EOSINOPHILS % (AUTO) 2 % (1-7); LYMPHOCYTES # (AUTO) 1.61 x10^3/uL (1-3.4); LYMPHOCYTES % (AUTO) 15 % (22-44); MD MORPH REVIEW ONLY; MONOCYTES # (AUTO) 0.41 x10^3/uL (0.2-0.8); MONOCYTES % (AUTO) 4 % (2-9); NEUTROPHILS # (AUTO) 8.22 x10^3/uL (1.8-6.8); NEUTROPHILS % (AUTO) 78 % (42-75)
[2019-10-27 06:42] LABS: <PLATELET ESTIMATE> ADEQUATE; <PLT MORPHOLOGY> NORMAL PLT MORPH; ANISOCYTOSIS 2+; POLYCHROMASIA 1+
[2019-10-27] MEDS: PANTOPRAZOLE 40 MG IV IV SCH (09:05)
[2019-10-27] MEDS: SODIUM CHLORIDE FLUSH 10ML SYR IVF SCH ×2 (09:06→20:53)
[2019-10-27] MEDS: CHOLECALCIFEROL 5,000u TAB PO SCH (09:06)
[2019-10-27] MEDS ORDERED: FUROSEMIDE 100 MG/10 ML IV ONE (10:00)
[2019-10-27 10:50] VITALS: BP 111/41
[2019-10-27] MEDS: CEFTRIAXONE PMX 2GM/50ML 50 ML IV SCH (11:02)
[2019-10-27 11:05] VITALS: BP 112/44
[2019-10-27 13:00] VITALS: BP 116/46
[2019-10-27 14:00] VITALS: BP 118/46
[2019-10-27] MEDS: ATORVASTATIN 80 MG TABLET PO SCH (20:53)
[2019-10-28] MEDS: DOXYCYCLINE 100 MG in DEXTROSE 5% 250 ML IV SCH ×2 (01:10→13:15)
[2019-10-28] MEDS: PROPOFOL 100 ML IV PRN ×3 (03:08→17:27)
[2019-10-28] MEDS: ALBUTEROL/IPRATROPIUM 2.5MG/0.5MG, 3 ML INLINE SCH ×6 (03:19→23:00)
[2019-10-28] MEDS: ASPIRIN 81 MG TABLET CHEW PO SCH (05:36)
[2019-10-28 05:51] LABS: MEAN CORPUSCULAR HEMOGLOBIN 29.1 pg (27.5-34.5); MEAN CORPUSCULAR HGB CONC 32.5 g/dL (33.2-36.2); MEAN CORPUSCULAR VOLUME 89.5 fL (81-97); MEAN PLATELET VOLUME 8.9 fL (7.4-10.4); PLATELET COUNT 197 x10^3/uL (130-400); RED BLOOD COUNT 2.49 x10^6/uL (4.38-5.82); RED CELL DISTRIBUTION WIDTH 22.4 % (9.4-14.8)
[2019-10-28 05:55] LABS: ANION GAP 7 mmol/L (5-15); CALCIUM 7.8 mg/dL (8.5-10.1); CHLORIDE 115 mmol/L (98-107); CREATININE 3.92 mg/dL (0.7-1.3)
[2019-10-28 06:23] LABS: MD YES
[2019-10-28 06:27] LABS: LYMPH#(MANUAL) 1.06 x10^3/uL (1-3.4); LYMPHS% (MANUAL) 10 % (22-44); MONOS#(MANUAL) 0.21 x10^3/uL (0.3-2.7); MONOS% (MANUAL) 2 % (2-9); SEG#(MANUAL) 9.33 x10^3/uL (1.8-6.8); SEGS% (MANUAL) 88 % (42-75)
[2019-10-28 06:28] LABS: <PLATELET ESTIMATE> ADEQUATE; <PLT MORPHOLOGY> NORMAL PLT MORPH; ANISOCYTOSIS 2+; POLYCHROMASIA 1+
[2019-10-28] MEDS: CHOLECALCIFEROL 5,000u TAB PO SCH (08:50)
[2019-10-28] MEDS: PANTOPRAZOLE 40 MG IV IV SCH (08:50)
[2019-10-28] MEDS: SODIUM CHLORIDE FLUSH 10ML SYR IVF SCH ×2 (08:50→20:19)
[2019-10-28 08:54] LABS: D-DIMER (DIC) 4.37 ug/mlFEU (0.00-0.52); PROTIME 12.1 Seconds (9.6-11.5)
[2019-10-28] MEDS ORDERED: ALBUTEROL SULFATE 2.5 MG/3 ML ONE ×2 (09:59→13:58)
[2019-10-28] MEDS: CEFTRIAXONE PMX 2GM/50ML 50 ML IV SCH (10:59)
[2019-10-28] MEDS: ALBUMIN HUMAN 25% 100 ML IV SCH ×3 (11:43→22:50)
[2019-10-28] MEDS: SODIUM CHLORIDE 0.45% 1,000 ML IV SCH (11:45)
[2019-10-28 12:37] LABS: CALCIUM 7.8 mg/dL (8.5-10.1)
[2019-10-28 13:04] LABS: POTASSIUM,URINE RANDOM 35 mmol/L; SODIUM,URINE RANDOM 36 mmol/L
[2019-10-28 13:09] LABS: CHLORIDE,URINE RANDOM < 10 mmol/L
[2019-10-28 13:16] LABS: MICROSCOPIC INDICATED
[2019-10-28] MEDS: ATORVASTATIN 80 MG TABLET PO SCH (20:19)
[2019-10-29] MEDS: DOXYCYCLINE 100 MG in DEXTROSE 5% 250 ML IV SCH ×2 (00:24→15:58)
[2019-10-29] MEDS: ALBUTEROL/IPRATROPIUM 2.5MG/0.5MG, 3 ML INLINE SCH ×6 (03:00→22:35)
[2019-10-29] MEDS: ASPIRIN 81 MG TABLET CHEW PO SCH (04:25)
[2019-10-29] MEDS: PROPOFOL 100 ML IV PRN ×2 (04:25→19:43)
[2019-10-29] MEDS: ALBUMIN HUMAN 25% 100 ML IV SCH (04:26)
[2019-10-29 05:17] LABS: ALBUMIN 2.5 g/dL (3.4-5.0); ANION GAP 9 mmol/L (5-15); CALCIUM 7.9 mg/dL (8.5-10.1); CHLORIDE 114 mmol/L (98-107)
[2019-10-29 05:22] LABS: MEAN CORPUSCULAR HEMOGLOBIN 29.5 pg (27.5-34.5); MEAN CORPUSCULAR HGB CONC 32.7 g/dL (33.2-36.2); MEAN CORPUSCULAR VOLUME 90.3 fL (81-97); MEAN PLATELET VOLUME 9.7 fL (7.4-10.4); PLATELET COUNT 193 x10^3/uL (130-400); RED BLOOD COUNT 2.22 x10^6/uL (4.38-5.82); RED CELL DISTRIBUTION WIDTH 23.3 % (9.4-14.8)
[2019-10-29 05:26] LABS: ALANINE AMINOTRANSFERASE 47 U/L (12-78); ALKALINE PHOSPHATASE 65 U/L (45-117); BILIRUBIN,TOTAL 0.6 mg/dL (0.2-1.0); CREATININE 3.96 mg/dL (0.7-1.3); TOTAL PROTEIN 9.1 g/dL (6.4-8.2)
[2019-10-29 05:51] LABS: BASOPHILS # (AUTO) 0.06 x10^3/uL (0-0.1); BASOPHILS % (AUTO) 1 % (0-1); EOSINOPHILS # (AUTO) 0.14 x10^3/uL (0-0.4); EOSINOPHILS % (AUTO) 2 % (1-7); LYMPHOCYTES # (AUTO) 1.72 x10^3/uL (1-3.4); LYMPHOCYTES % (AUTO) 21 % (22-44); MD SCAN; MONOCYTES # (AUTO) 0.42 x10^3/uL (0.2-0.8); MONOCYTES % (AUTO) 5 % (2-9); NEUTROPHILS # (AUTO) 5.81 x10^3/uL (1.8-6.8); NEUTROPHILS % (AUTO) 71 % (42-75)
[2019-10-29 09:15] VITALS: BP 107/50
[2019-10-29] MEDS: PANTOPRAZOLE 40 MG IV IV SCH (09:16)
[2019-10-29] MEDS: CHOLECALCIFEROL 5,000u TAB PO SCH (09:16)
[2019-10-29] MEDS: SODIUM CHLORIDE FLUSH 10ML SYR IVF SCH ×2 (09:16→21:06)
[2019-10-29 09:30] VITALS: BP 116/48
[2019-10-29 09:45] VITALS: BP 111/46
[2019-10-29 10:00] VITALS: BP 118/53
[2019-10-29 10:30] VITALS: BP 122/53
[2019-10-29 10:45] VITALS: BP 120/52
[2019-10-29] MEDS: SODIUM CHLORIDE 0.45% 1,000 ML IV SCH (11:00)
[2019-10-29] MEDS: CEFTRIAXONE PMX 2GM/50ML 50 ML IV SCH (14:19)
[2019-10-29] MEDS: ATORVASTATIN 80 MG TABLET PO SCH (21:06)
[2019-10-30] MEDS: PROPOFOL 100 ML IV PRN (01:42)
[2019-10-30] MEDS: ALBUTEROL/IPRATROPIUM 2.5MG/0.5MG, 3 ML INLINE SCH ×6 (02:04→22:50)
[2019-10-30] MEDS: DOXYCYCLINE 100 MG in DEXTROSE 5% 250 ML IV SCH (04:03)
[2019-10-30 04:33] LABS: MEAN CORPUSCULAR HEMOGLOBIN 29.3 pg (27.5-34.5); MEAN CORPUSCULAR VOLUME 91.4 fL (81-97); MEAN PLATELET VOLUME 9.6 fL (7.4-10.4); PLATELET COUNT 256 x10^3/uL (130-400); RED BLOOD COUNT 3.03 x10^6/uL (4.38-5.82); RED CELL DISTRIBUTION WIDTH 21.6 % (9.4-14.8)
[2019-10-30 04:44] LABS: ALANINE AMINOTRANSFERASE 232 U/L (12-78); ALBUMIN 2.6 g/dL (3.4-5.0); ANION GAP 10 mmol/L (5-15); CALCIUM 8.4 mg/dL (8.5-10.1); CHLORIDE 112 mmol/L (98-107); CREATININE 4.25 mg/dL (0.7-1.3)
[2019-10-30 04:52] LABS: ALKALINE PHOSPHATASE 117 U/L (45-117); BILIRUBIN,TOTAL 0.6 mg/dL (0.2-1.0); TOTAL PROTEIN 9.4 g/dL (6.4-8.2); TRIGLYCERIDES 110 mg/dL (50-200)
[2019-10-30 05:00] LABS: BASOPHILS # (AUTO) 0.08 x10^3/uL (0-0.1); BASOPHILS % (AUTO) 1 % (0-1); EOSINOPHILS # (AUTO) 0.25 x10^3/uL (0-0.4); EOSINOPHILS % (AUTO) 2 % (1-7); LYMPHOCYTES # (AUTO) 2.92 x10^3/uL (1-3.4); LYMPHOCYTES % (AUTO) 22 % (22-44); MD SCAN; MONOCYTES # (AUTO) 0.74 x10^3/uL (0.2-0.8); MONOCYTES % (AUTO) 6 % (2-9); NEUTROPHILS # (AUTO) 9.29 x10^3/uL (1.8-6.8); NEUTROPHILS % (AUTO) 70 % (42-75)
[2019-10-30] MEDS: ASPIRIN 81 MG TABLET CHEW PO SCH (06:06)
[2019-10-30] MEDS: SODIUM CHLORIDE 0.45% 1,000 ML IV SCH (07:00)
[2019-10-30] MEDS ORDERED: DOXYCYCLINE 100 MG in SODIUM CHLORIDE 0.9% 250 ML IV SCH (08:33)
[2019-10-30] MEDS: SODIUM CHLORIDE FLUSH 10ML SYR IVF SCH ×2 (09:00→20:04)
[2019-10-30] MEDS: PANTOPRAZOLE 40 MG IV IV SCH (09:33)
[2019-10-30] MEDS: CHOLECALCIFEROL 5,000u TAB PO SCH (09:34)
[2019-10-30] MEDS: ENOXAPARIN 40 MG/0.4 ML SQ SCH (09:34)
[2019-10-30] MEDS: CEFTRIAXONE PMX 2GM/50ML 50 ML IV SCH (16:43)
[2019-10-30] MEDS: ATORVASTATIN 80 MG TABLET PO SCH (20:03)
[2019-10-31] MEDS: PROPOFOL 100 ML IV PRN ×2 (02:57→20:41)
[2019-10-31] MEDS: ALBUTEROL/IPRATROPIUM 2.5MG/0.5MG, 3 ML INLINE SCH ×6 (03:10→22:49)
[2019-10-31 04:22] LABS: BASOPHILS # (AUTO) 0.06 x10^3/uL (0-0.1); BASOPHILS % (AUTO) 1 % (0-1); EOSINOPHILS # (AUTO) 0.31 x10^3/uL (0-0.4); EOSINOPHILS % (AUTO) 3 % (1-7); LYMPHOCYTES # (AUTO) 1.21 x10^3/uL (1-3.4); LYMPHOCYTES % (AUTO) 12 % (22-44); MD NO; MEAN CORPUSCULAR HEMOGLOBIN 28.5 pg (27.5-34.5); MEAN CORPUSCULAR HGB CONC 31.8 g/dL (33.2-36.2); MEAN CORPUSCULAR VOLUME 89.6 fL (81-97); MEAN PLATELET VOLUME 9.4 fL (7.4-10.4); MONOCYTES # (AUTO) 0.59 x10^3/uL (0.2-0.8); MONOCYTES % (AUTO) 6 % (2-9); NEUTROPHILS # (AUTO) 8.17 x10^3/uL (1.8-6.8); NEUTROPHILS % (AUTO) 79 % (42-75); PLATELET COUNT 255 x10^3/uL (130-400); RED BLOOD COUNT 2.92 x10^6/uL (4.38-5.82); RED CELL DISTRIBUTION WIDTH 21.4 % (9.4-14.8)
[2019-10-31 04:27] LABS: ANION GAP 9 mmol/L (5-15); CALCIUM 8.3 mg/dL (8.5-10.1); CHLORIDE 108 mmol/L (98-107)
[2019-10-31] MEDS: ASPIRIN 81 MG TABLET CHEW PO SCH (06:00)
[2019-10-31] MEDS: FENTANYL PF 100 MCG/2ML IVPush PRN (08:41)
[2019-10-31] MEDS ORDERED: VECURONIUM 10 MG ONE (10:12)
[2019-10-31] MEDS: SODIUM CHLORIDE FLUSH 10ML SYR IVF SCH ×2 (10:29→20:41)
[2019-10-31] MEDS ORDERED: VECURONIUM 10 MG IVPush ONE (10:30)
[2019-10-31] MEDS: PANTOPRAZOLE 40 MG IV IV SCH (10:44)
[2019-10-31] MEDS: CHOLECALCIFEROL 5,000u TAB PO SCH (12:00)
[2019-10-31] MEDS: ENOXAPARIN 40 MG/0.4 ML SQ SCH (12:51)
[2019-10-31] MEDS: CEFTRIAXONE PMX 2GM/50ML 50 ML IV SCH (13:43)
[2019-10-31] MEDS: ATORVASTATIN 80 MG TABLET PO SCH (20:41)
[2019-11-01] MEDS: ALBUTEROL/IPRATROPIUM 2.5MG/0.5MG, 3 ML INLINE SCH ×6 (04:06→22:31)
[2019-11-01 04:30] LABS: BASOPHILS # (AUTO) 0.07 x10^3/uL (0-0.1); BASOPHILS % (AUTO) 1 % (0-1); EOSINOPHILS % (AUTO) 3 % (1-7); LYMPHOCYTES # (AUTO) 1.54 x10^3/uL (1-3.4); LYMPHOCYTES % (AUTO) 14 % (22-44); MD NO; MEAN CORPUSCULAR HEMOGLOBIN 28.5 pg (27.5-34.5); MEAN CORPUSCULAR HGB CONC 31.9 g/dL (33.2-36.2); MEAN CORPUSCULAR VOLUME 89.5 fL (81-97); MEAN PLATELET VOLUME 9.4 fL (7.4-10.4); MONOCYTES # (AUTO) 0.55 x10^3/uL (0.2-0.8); MONOCYTES % (AUTO) 5 % (2-9); NEUTROPHILS # (AUTO) 8.55 x10^3/uL (1.8-6.8); NEUTROPHILS % (AUTO) 78 % (42-75); PLATELET COUNT 279 x10^3/uL (130-400); RED BLOOD COUNT 3.08 x10^6/uL (4.38-5.82); RED CELL DISTRIBUTION WIDTH 21.3 % (9.4-14.8)
[2019-11-01 04:40] LABS: ALBUMIN 2.4 g/dL (3.4-5.0); ANION GAP 9 mmol/L (5-15); CALCIUM 8.2 mg/dL (8.5-10.1); CHLORIDE 107 mmol/L (98-107)
[2019-11-01 04:44] LABS: ALANINE AMINOTRANSFERASE 158 U/L (12-78); ALKALINE PHOSPHATASE 122 U/L (45-117); BILIRUBIN,TOTAL 0.6 mg/dL (0.2-1.0); CREATININE 2.61 mg/dL (0.7-1.3); TOTAL PROTEIN 9.6 g/dL (6.4-8.2)
[2019-11-01] MEDS: ASPIRIN 81 MG TABLET CHEW PO SCH (05:24)
[2019-11-01] MEDS: OXYcodone 5 MG/5 ML ORAL.SOL UDC PO PRN (10:56)
[2019-11-01] MEDS: CHOLECALCIFEROL 5,000u TAB PO SCH (10:56)
[2019-11-01] MEDS: PANTOPRAZOLE 40 MG IV IV SCH (10:58)
[2019-11-01] MEDS: SODIUM CHLORIDE FLUSH 10ML SYR IVF SCH ×2 (11:01→21:09)
[2019-11-01] MEDS ORDERED: ENOXAPARIN 30 MG/0.3 ML SQ SCH (12:00)
[2019-11-01] MEDS: CEFTRIAXONE PMX 2GM/50ML 50 ML IV SCH (12:34)
[2019-11-01] MEDS: DEXMEDETOMIDINE 400 MCG in SODIUM CHLORIDE 0.9% 96 ML IV PRN (13:26)
[2019-11-01] MEDS: ATORVASTATIN 80 MG TABLET PO SCH (21:08)
[2019-11-02] MEDS: OXYcodone 5 MG/5 ML ORAL.SOL UDC PO PRN (02:25)
[2019-11-02] MEDS: ALBUTEROL/IPRATROPIUM 2.5MG/0.5MG, 3 ML INLINE SCH ×6 (02:41→23:00)
[2019-11-02 05:16] LABS: BASOPHILS # (AUTO) 0.06 x10^3/uL (0-0.1); BASOPHILS % (AUTO) 1 % (0-1); EOSINOPHILS # (AUTO) 0.13 x10^3/uL (0-0.4); EOSINOPHILS % (AUTO) 1 % (1-7); LYMPHOCYTES # (AUTO) 1.09 x10^3/uL (1-3.4); LYMPHOCYTES % (AUTO) 12 % (22-44); MD NO; MEAN CORPUSCULAR HEMOGLOBIN 28.2 pg (27.5-34.5); MEAN CORPUSCULAR HGB CONC 31.9 g/dL (33.2-36.2); MEAN CORPUSCULAR VOLUME 88.5 fL (81-97); MEAN PLATELET VOLUME 9.1 fL (7.4-10.4); MONOCYTES # (AUTO) 0.44 x10^3/uL (0.2-0.8); MONOCYTES % (AUTO) 5 % (2-9); NEUTROPHILS # (AUTO) 7.45 x10^3/uL (1.8-6.8); NEUTROPHILS % (AUTO) 81 % (42-75); PLATELET COUNT 239 x10^3/uL (130-400); RED BLOOD COUNT 2.88 x10^6/uL (4.38-5.82); RED CELL DISTRIBUTION WIDTH 20.7 % (9.4-14.8)
[2019-11-02 05:19] LABS: ALANINE AMINOTRANSFERASE 121 U/L (12-78); ALBUMIN 2.3 g/dL (3.4-5.0); ANION GAP 5 mmol/L (5-15); CHLORIDE 104 mmol/L (98-107); CREATININE 2.42 mg/dL (0.7-1.3)
[2019-11-02 05:22] LABS: ALKALINE PHOSPHATASE 110 U/L (45-117); BILIRUBIN,TOTAL 0.6 mg/dL (0.2-1.0); TOTAL PROTEIN 9.1 g/dL (6.4-8.2); TRIGLYCERIDES 81 mg/dL (50-200)
[2019-11-02] MEDS: ASPIRIN 81 MG TABLET CHEW PO SCH (05:36)
[2019-11-02] MEDS: DEXMEDETOMIDINE 400 MCG in SODIUM CHLORIDE 0.9% 96 ML IV PRN ×2 (05:48→23:57)
[2019-11-02] MEDS: SODIUM CHLORIDE FLUSH 10ML SYR IVF SCH ×2 (10:15→21:39)
[2019-11-02] MEDS: CHOLECALCIFEROL 5,000u TAB PO SCH (10:15)
[2019-11-02] MEDS: PANTOPRAZOLE 40 MG IV IV SCH (10:16)
[2019-11-02] MEDS: CEFTRIAXONE PMX 2GM/50ML 50 ML IV SCH (14:32)
[2019-11-02] MEDS: ATORVASTATIN 80 MG TABLET PO SCH (21:39)
[2019-11-03] MEDS: ALBUTEROL/IPRATROPIUM 2.5MG/0.5MG, 3 ML INLINE SCH ×6 (03:20→22:15)
[2019-11-03 05:43] LABS: BASOPHILS # (AUTO) 0.06 x10^3/uL (0-0.1); BASOPHILS % (AUTO) 1 % (0-1); EOSINOPHILS # (AUTO) 0.26 x10^3/uL (0-0.4); EOSINOPHILS % (AUTO) 3 % (1-7); LYMPHOCYTES # (AUTO) 1.17 x10^3/uL (1-3.4); LYMPHOCYTES % (AUTO) 12 % (22-44); MD NO; MEAN CORPUSCULAR HEMOGLOBIN 28.1 pg (27.5-34.5); MEAN CORPUSCULAR HGB CONC 31.6 g/dL (33.2-36.2); MEAN PLATELET VOLUME 9.1 fL (7.4-10.4); MONOCYTES % (AUTO) 4 % (2-9); NEUTROPHILS # (AUTO) 7.82 x10^3/uL (1.8-6.8); NEUTROPHILS % (AUTO) 81 % (42-75); PLATELET COUNT 206 x10^3/uL (130-400); RED BLOOD COUNT 2.73 x10^6/uL (4.38-5.82)
[2019-11-03 05:50] LABS: ALBUMIN 2.2 g/dL (3.4-5.0); ANION GAP 8 mmol/L (5-15); CALCIUM 8.2 mg/dL (8.5-10.1); CHLORIDE 105 mmol/L (98-107)
[2019-11-03 05:57] LABS: ALANINE AMINOTRANSFERASE 97 U/L (12-78); ALKALINE PHOSPHATASE 101 U/L (45-117); BILIRUBIN,TOTAL 0.6 mg/dL (0.2-1.0); TOTAL PROTEIN 8.9 g/dL (6.4-8.2)
[2019-11-03] MEDS: PANTOPRAZOLE 40 MG IV IV SCH (09:34)
[2019-11-03] MEDS: CHOLECALCIFEROL 5,000u TAB PO SCH (09:34)
[2019-11-03] MEDS: ASPIRIN 81 MG TABLET CHEW PO SCH (09:34)
[2019-11-03] MEDS: SODIUM CHLORIDE FLUSH 10ML SYR IVF SCH ×2 (09:35→21:37)
--- NOTE | 2019-11-03 09:52 | NUR ---
TF GOAL: NEPRO @ 60ML/HR
[2019-11-03] MEDS ORDERED: ARGATROBAN/NACL 50 MG/50 ML 50 ML IV SCH (11:00)
[2019-11-03] MEDS: CEFTRIAXONE PMX 2GM/50ML 50 ML IV SCH (16:23)
[2019-11-03] MEDS: ARGATROBAN/NACL 50 MG/50 ML 50 ML IV SCH (17:14)
[2019-11-03] MEDS: DEXMEDETOMIDINE 400 MCG in SODIUM CHLORIDE 0.9% 96 ML IV PRN ×2 (17:15→23:45)
[2019-11-03] MEDS: ATORVASTATIN 80 MG TABLET PO SCH (21:37)
[2019-11-03] MEDS: FENTANYL PF 100 MCG/2ML IVPush PRN (22:54)
[2019-11-04] MEDS: ARGATROBAN/NACL 50 MG/50 ML 50 ML IV SCH ×2 (01:43→12:25)
[2019-11-04] MEDS: ALBUTEROL/IPRATROPIUM 2.5MG/0.5MG, 3 ML INLINE SCH ×6 (02:00→22:30)
[2019-11-04 04:26] LABS: BASOPHILS # (AUTO) 0.07 x10^3/uL (0-0.1); BASOPHILS % (AUTO) 1 % (0-1); EOSINOPHILS % (AUTO) 2 % (1-7); LYMPHOCYTES # (AUTO) 1.12 x10^3/uL (1-3.4); LYMPHOCYTES % (AUTO) 12 % (22-44); MD NO; MEAN CORPUSCULAR HEMOGLOBIN 28.4 pg (27.5-34.5); MEAN CORPUSCULAR HGB CONC 32.5 g/dL (33.2-36.2); MEAN CORPUSCULAR VOLUME 87.4 fL (81-97); MEAN PLATELET VOLUME 8.6 fL (7.4-10.4); MONOCYTES # (AUTO) 0.46 x10^3/uL (0.2-0.8); MONOCYTES % (AUTO) 5 % (2-9); NEUTROPHILS # (AUTO) 7.26 x10^3/uL (1.8-6.8); NEUTROPHILS % (AUTO) 80 % (42-75); PLATELET COUNT 211 x10^3/uL (130-400); RED BLOOD COUNT 2.69 x10^6/uL (4.38-5.82); RED CELL DISTRIBUTION WIDTH 19.5 % (9.4-14.8)
[2019-11-04 04:38] LABS: ALBUMIN 2.1 g/dL (3.4-5.0); ANION GAP 10 mmol/L (5-15); CALCIUM 8.2 mg/dL (8.5-10.1); CHLORIDE 103 mmol/L (98-107)
[2019-11-04 04:41] LABS: ALANINE AMINOTRANSFERASE 79 U/L (12-78); ALKALINE PHOSPHATASE 111 U/L (45-117); BILIRUBIN,TOTAL 0.6 mg/dL (0.2-1.0); CREATININE 2.89 mg/dL (0.7-1.3); TOTAL PROTEIN 8.7 g/dL (6.4-8.2)
[2019-11-04] MEDS: ASPIRIN 81 MG TABLET CHEW PO SCH (05:11)
[2019-11-04] MEDS: DEXMEDETOMIDINE 400 MCG in SODIUM CHLORIDE 0.9% 96 ML IV PRN (09:54)
[2019-11-04] MEDS: PANTOPRAZOLE 40 MG IV IV SCH (12:35)
[2019-11-04] MEDS: CHOLECALCIFEROL 5,000u TAB PO SCH (12:35)
[2019-11-04] MEDS: SODIUM CHLORIDE FLUSH 10ML SYR IVF SCH ×2 (12:36→21:29)
[2019-11-04] MEDS: CEFTRIAXONE PMX 2GM/50ML 50 ML IV SCH (15:12)
[2019-11-04] MEDS: ATORVASTATIN 80 MG TABLET PO SCH (21:29)
[2019-11-04] MEDS: ACETAMINOPHEN 325 MG TABLET PO PRN (21:29)
[2019-11-04] MEDS ORDERED: ARGATROBAN 250 MG in SODIUM CHLORIDE 0.9% 250 ML IV SCH (22:30)
[2019-11-04] MEDS ORDERED: ARGATROBAN 250 MG in SODIUM CHLORIDE 0.9% 247.5 ML IV SCH (22:30)
[2019-11-05] MEDS ORDERED: NOREPINEPHRINE 8 MG in SODIUM CHLORIDE 0.9% 242 ML IV PRN
[2019-11-05] MEDS: DEXMEDETOMIDINE 400 MCG in SODIUM CHLORIDE 0.9% 96 ML IV PRN ×3 (00:05→19:55)
[2019-11-05] MEDS: OXYcodone 5 MG/5 ML ORAL.SOL UDC PO PRN (00:50)
[2019-11-05] MEDS: ALBUTEROL/IPRATROPIUM 2.5MG/0.5MG, 3 ML INLINE SCH ×6 (02:35→23:10)
[2019-11-05 05:33] LABS: BASOPHILS # (AUTO) 0.06 x10^3/uL (0-0.1); BASOPHILS % (AUTO) 1 % (0-1); EOSINOPHILS % (AUTO) 3 % (1-7); LYMPHOCYTES # (AUTO) 1.31 x10^3/uL (1-3.4); LYMPHOCYTES % (AUTO) 15 % (22-44); MD NO; MEAN CORPUSCULAR VOLUME 87.3 fL (81-97); MEAN PLATELET VOLUME 9.2 fL (7.4-10.4); MONOCYTES # (AUTO) 0.37 x10^3/uL (0.2-0.8); MONOCYTES % (AUTO) 4 % (2-9); NEUTROPHILS # (AUTO) 7.04 x10^3/uL (1.8-6.8); NEUTROPHILS % (AUTO) 78 % (42-75); PLATELET COUNT 206 x10^3/uL (130-400); RED BLOOD COUNT 2.69 x10^6/uL (4.38-5.82); RED CELL DISTRIBUTION WIDTH 19.2 % (9.4-14.8)
[2019-11-05 05:39] LABS: ANION GAP 9 mmol/L (5-15); CALCIUM 7.9 mg/dL (8.5-10.1); CHLORIDE 99 mmol/L (98-107); CREATININE 2.91 mg/dL (0.7-1.3); TRIGLYCERIDES 86 mg/dL (50-200)
[2019-11-05] MEDS: ASPIRIN 81 MG TABLET CHEW PO SCH (06:18)
[2019-11-05] MEDS: SODIUM CHLORIDE FLUSH 10ML SYR IVF SCH ×2 (09:40→20:20)
[2019-11-05] MEDS: CHOLECALCIFEROL 5,000u TAB PO SCH (09:40)
[2019-11-05] MEDS: PANTOPRAZOLE 40 MG IV IV SCH (09:40)
[2019-11-05] MEDS: CEFTRIAXONE PMX 2GM/50ML 50 ML IV SCH (14:54)
[2019-11-05] MEDS: ATORVASTATIN 80 MG TABLET PO SCH (21:47)
[2019-11-05] MEDS: MELATONIN 5 MG TABLET PO SCH (21:47)
[2019-11-06] VITALS (26 sets, daily range): BP systolic 93–119; BP diastolic 28–68
[2019-11-06] MEDS: ALBUTEROL/IPRATROPIUM 2.5MG/0.5MG, 3 ML INLINE SCH ×6 (02:48→22:42)
[2019-11-06 04:30] LABS: MEAN CORPUSCULAR HGB CONC 32.3 g/dL (33.2-36.2); MEAN CORPUSCULAR VOLUME 86.7 fL (81-97); MEAN PLATELET VOLUME 8.8 fL (7.4-10.4); PLATELET COUNT 192 x10^3/uL (130-400); RED BLOOD COUNT 2.54 x10^6/uL (4.38-5.82); RED CELL DISTRIBUTION WIDTH 18.9 % (9.4-14.8)
[2019-11-06 04:34] LABS: ANION GAP 10 mmol/L (5-15); CALCIUM 8.2 mg/dL (8.5-10.1); CHLORIDE 98 mmol/L (98-107)
[2019-11-06 04:42] LABS: CREATININE 4.35 mg/dL (0.7-1.3)
[2019-11-06 05:43] LABS: BASOPHILS # (AUTO) 0.09 x10^3/uL (0-0.1); BASOPHILS % (AUTO) 1 % (0-1); EOSINOPHILS # (AUTO) 0.01 x10^3/uL (0-0.4); EOSINOPHILS % (AUTO) 0 % (1-7); LYMPHOCYTES # (AUTO) 1.05 x10^3/uL (1-3.4); LYMPHOCYTES % (AUTO) 10 % (22-44); MD SCAN; MONOCYTES % (AUTO) 4 % (2-9); NEUTROPHILS # (AUTO) 9.26 x10^3/uL (1.8-6.8); NEUTROPHILS % (AUTO) 86 % (42-75)
[2019-11-06] MEDS: ASPIRIN 81 MG TABLET CHEW PO SCH (05:52)
[2019-11-06] MEDS: CHOLECALCIFEROL 5,000u TAB PO SCH (08:19)
[2019-11-06] MEDS: PANTOPRAZOLE 40 MG IV IV SCH (08:19)
[2019-11-06] MEDS: SODIUM CHLORIDE FLUSH 10ML SYR IVF SCH ×2 (08:19→20:48)
[2019-11-06 10:44] LABS: INTERNATIONAL NORMALIZED RATIO 3.61 (0.93-1.1); PROTHROMBIN TIME 38.8 Seconds (9.6-11.5)
[2019-11-06] MEDS ORDERED: MIDAZOLAM 1 MG/ML, 2ML ONE (11:56)
[2019-11-06] MEDS ORDERED: FENTANYL PF 250 MCG/5ML ONE (11:57)
[2019-11-06] MEDS ORDERED: THROMBIN 5,000 UNIT VIAL TP ONE (12:24)
[2019-11-06] MEDS ORDERED: BUPIVACAINE/PF-EPI 0.5% 1:200K ONE (12:24)
[2019-11-06] MEDS ORDERED: BACITRACIN 50,000 UNIT ONE (12:24)
[2019-11-06] MEDS ORDERED: THROMBIN 20,000 UNIT VIAL TP ONE (13:04)
[2019-11-06 13:13] LABS: INTERNATIONAL NORMALIZED RATIO 2.58 (0.93-1.1); PROTHROMBIN TIME 27.6 Seconds (9.6-11.5)
[2019-11-06 16:51] LABS: INTERNATIONAL NORMALIZED RATIO 1.5 (0.93-1.1)
[2019-11-06] MEDS: CEFTRIAXONE PMX 2GM/50ML 50 ML IV SCH (20:02)
[2019-11-06] MEDS: MELATONIN 5 MG TABLET PO SCH (20:44)
[2019-11-06] MEDS: ATORVASTATIN 80 MG TABLET PO SCH (20:48)
[2019-11-06] MEDS: ACETAMINOPHEN 325 MG TABLET PO PRN (23:42)
[2019-11-07] MEDS: ALBUTEROL/IPRATROPIUM 2.5MG/0.5MG, 3 ML INLINE SCH ×3 (02:48→10:41)
[2019-11-07 04:22] LABS: ANION GAP 10 mmol/L (5-15); CALCIUM 8.5 mg/dL (8.5-10.1); CHLORIDE 98 mmol/L (98-107); CREATININE 3.48 mg/dL (0.7-1.3)
[2019-11-07 04:55] LABS: INTERNATIONAL NORMALIZED RATIO 1.4 (0.93-1.1); PROTHROMBIN TIME 14.9 Seconds (9.6-11.5)
[2019-11-07 05:00] VITALS: BP 91/34
[2019-11-07 05:29] LABS: BASOPHILS # (AUTO) 0.07 x10^3/uL (0-0.1); BASOPHILS % (AUTO) 1 % (0-1); EOSINOPHILS % (AUTO) 0 % (1-7); LYMPHOCYTES # (AUTO) 1.57 x10^3/uL (1-3.4); LYMPHOCYTES % (AUTO) 16 % (22-44); MD NO; MEAN CORPUSCULAR HEMOGLOBIN 27.6 pg (27.5-34.5); MEAN CORPUSCULAR HGB CONC 31.7 g/dL (33.2-36.2); MEAN CORPUSCULAR VOLUME 87.1 fL (81-97); MONOCYTES % (AUTO) 3 % (2-9); NEUTROPHILS # (AUTO) 8.15 x10^3/uL (1.8-6.8); NEUTROPHILS % (AUTO) 81 % (42-75); PLATELET COUNT 281 x10^3/uL (130-400); RED BLOOD COUNT 2.73 x10^6/uL (4.38-5.82); RED CELL DISTRIBUTION WIDTH 19.9 % (9.4-14.8)
[2019-11-07] MEDS: SODIUM CHLORIDE FLUSH 10ML SYR IVF SCH (07:30)
[2019-11-07] MEDS: CHOLECALCIFEROL 5,000u TAB PO SCH (07:30)
[2019-11-07] MEDS: PANTOPRAZOLE 40 MG IV IV SCH (07:30)
[2019-11-07] MEDS ORDERED: MORPHINE SULFATE 4 MG/ML, 1ML IV ONE (12:30)
[2019-11-07] MEDS ORDERED: LORazepam 2 MG/ML, 1ML IVPush PRN (12:30)
[2019-11-07] MEDS ORDERED: ONDANSETRON 2MG/ML, 2ML IVPush PRN (12:30)
[2019-11-07] MEDS ORDERED: MORPHINE 30MG/30ML PCA.SYR IV PRN (12:30)
[2019-11-07] MEDS ORDERED: LORazepam 2 MG/ML, 1ML IV ONE (12:30)
== END 2019-11-07 13:31 | disposition expired | DRG 4 ==
LOC: ED 18:48 → EDIP 19:57 → ICU 21:04 → CCU 10-22 17:49 → ICU 10-26 13:57 → CCU 10-30 17:34
PROVIDERS: ADMIT Family Medicine; ATTEND Internal Medicine
PROC: 5A1955Z Respiratory Ventilation, Greater than 96 Consecutive Hours (ICD-10-PCS; 2019-10-16)
PROC: 0T9B70Z Drainage of Bladder with Drainage Device, Via Natural or Artificial Opening (ICD-10-PCS; 2019-10-16)
PROC: 30233N1 Transfusion of Nonautologous Red Blood Cells into Peripheral Vein, Percutaneous Approach (ICD-10-PCS; 2019-10-16)
PROC: 0BH17EZ Insertion of Endotracheal Airway into Trachea, Via Natural or Artificial Opening (ICD-10-PCS; 2019-10-16)
PROC: 0BJ08ZZ Inspection of Tracheobronchial Tree, Via Natural or Artificial Opening Endoscopic (ICD-10-PCS; 2019-10-23)
PROC: 02HV33Z Insertion of Infusion Device into Superior Vena Cava, Percutaneous Approach (ICD-10-PCS; 2019-10-30)
PROC: B548ZZA Ultrasonography of Superior Vena Cava, Guidance (ICD-10-PCS; 2019-10-30)
PROC: 5A1D70Z Performance of Urinary Filtration, Intermittent, Less than 6 Hours Per Day (ICD-10-PCS; 2019-10-30)
PROC: 0B113F4 Bypass Trachea to Cutaneous with Tracheostomy Device, Percutaneous Approach (ICD-10-PCS; principal; 2019-10-31)
PROC: 5A1D70Z Performance of Urinary Filtration, Intermittent, Less than 6 Hours Per Day (ICD-10-PCS; 2019-10-31)
PROC: 5A1D70Z Performance of Urinary Filtration, Intermittent, Less than 6 Hours Per Day (ICD-10-PCS; 2019-11-01)
PROC: 5A1D70Z Performance of Urinary Filtration, Intermittent, Less than 6 Hours Per Day (ICD-10-PCS; 2019-11-03)
PROC: 5A1D70Z Performance of Urinary Filtration, Intermittent, Less than 6 Hours Per Day (ICD-10-PCS; 2019-11-04)
PROC: 30233K1 Transfusion of Nonautologous Frozen Plasma into Peripheral Vein, Percutaneous Approach (ICD-10-PCS; 2019-11-06)
PROC: 30233R1 Transfusion of Nonautologous Platelets into Peripheral Vein, Percutaneous Approach (ICD-10-PCS; 2019-11-06)
PROC: 5A1D70Z Performance of Urinary Filtration, Intermittent, Less than 6 Hours Per Day (ICD-10-PCS; 2019-11-06)
DX: A41.9 Sepsis, unspecified organism (principal); D65 Disseminated intravascular coagulation [defibrination syndrome]; E43 Unspecified severe protein-calorie malnutrition; G93.41 Metabolic encephalopathy; I21.4 Non-ST elevation (NSTEMI) myocardial infarction; I33.0 Acute and subacute infective endocarditis; I50.43 Acute on chronic combined systolic (congestive) and diastolic (congestive) heart failure; I61.4 Nontraumatic intracerebral hemorrhage in cerebellum; J12.9 Viral pneumonia, unspecified; J96.01 Acute respiratory failure with hypoxia; J96.02 Acute respiratory failure with hypercapnia; N17.0 Acute kidney failure with tubular necrosis; D62 Acute posthemorrhagic anemia; J44.0 Chronic obstructive pulmonary disease with (acute) lower respiratory infection; Z99.11 Dependence on respirator [ventilator] status; Z20.828 Contact with and (suspected) exposure to other viral communicable diseases; D75.82 Heparin induced thrombocytopenia (HIT); Z68.20 Body mass index [BMI] 20.0-20.9, adult; E83.51 Hypocalcemia; E87.5 Hyperkalemia; F17.210 Nicotine dependence, cigarettes, uncomplicated; I08.3 Combined rheumatic disorders of mitral, aortic and tricuspid valves; I27.20 Pulmonary hypertension, unspecified; R57.0 Cardiogenic shock; Z66 Do not resuscitate; Z51.5 Encounter for palliative care; Z79.4 Long term (current) use of insulin; Z95.2 Presence of prosthetic heart valve; Z99.2 Dependence on renal dialysis; R65.20 Severe sepsis without septic shock
CPT/HCPCS: 36415; 36556; 36600; 73502; 74018; 77001; 82805; 87486; 87581; 87633; 87798; 96365; 96375; 99291; J3490; 31622; 36430; 70450; 71045; 76770; 76937; 80048; 80053; 80069; 80076; 80202; 81001; 82040; 82105; 82306; 82310; 82330; 82378; 82436; 82533; 82550; 82728; 82803; 82962; 83010; 83516; 83520; 83540; 83550; 83605; 83615; 83735; 83880; 83935; 83970; 84100; 84133; 84156; 84300; 84478; 84484; 84550; 85014; 85018; 85025; 85027; 85049; 85362; 85379; 85384; 85520; 85610; 85651; 85730; 86022; 86038; 86140; 86160; 86162; 86256; 86301; 86592; 86631; 86632; 86635; 86638; 86705; 86706; 86738; 86850; 86900; 86923; 87040; 87070; 87081; 87086; 87205; 87340; 87635; 90935; 93005; 93306; 93308; 93321; 93325; 94002; 94003; 94640; C1894; G0378; J0456; J0696; J0883; J1100; J1265; J1644; J1650; J1815; J1940; J2250; J2405; J2543; J2597; J2704; J3010; J3370; J7060; P9047; C1751; C9113; J0330; J0780; J1642; J2060; J2270; J7030; J7050; P9016; P9017; P9035